=== PATIENT | female | born 1990 | race Hispanic/Latino ===

== ENCOUNTER 2020-01-13 12:06 | Emergency (ER) | payer SELFPAY ==
[~2020-01-13] VITALS: Ht 152.4 cm; Wt 62.6 kg
[2020-01-13] MEDS ORDERED: CIPRO500 MG PO (12:08)
--- NOTE | 2020-01-13 13:05 | NUR ---
TOO LENSE APPLIED TO RIGHT EYE WITH 2 LITERS OF LR IRRIGATING, PT TOLERATING WELL.
[2020-01-13] MEDS ORDERED: LACTATED RINGER'S 1,000 ML IV ONE ×2 (13:15)
[2020-01-13 13:55] VITALS: BP 120/75
== END 2020-01-13 14:01 | disposition home or self-care (01) ==
LOC: FSED 12:06
DX: H57.11 Ocular pain, right eye (principal); S05.01XA Injury of conjunctiva and corneal abrasion without foreign body, right eye, initial encounter; H10.211 Acute toxic conjunctivitis, right eye; F17.210 Nicotine dependence, cigarettes, uncomplicated
CPT/HCPCS: 99283; J7121